=== PATIENT | male | born 1970 | race Caucasian/White ===

== ENCOUNTER 2017-12-23 21:54 | Emergency (ER) | payer OTHER, SELFPAY ==
[2017-12-23 22:03] VITALS: BP 106/54; PULSE 71; RESP 16; TEMP 37; O2SAT 98; BMI 21.5
--- NOTE | 2017-12-23 22:18 | HMH.EDGENADL ---
ED Disposition Clinical Impression: Acute bronchitis Qualifiers: Bronchitis organism: unspecified organism Qualified Code(s): J20.9 - Acute bronchitis, unspecified COPD (chronic obstructive pulmonary disease) Qualifiers: COPD type: unspecified COPD Qualified Code(s): J44.9 - Chronic obstructive pulmonary disease, unspecified Disposition: Home, Self-Care Condition on Discharge: Good Additional Instructions: Additional instructions for ACUTE BRONCHITIS: Use Tylenol or Ibuprofen for pain or fever. Rest and plenty of fluids. Return immediately if you have an uncontrollable fever greater than 102 degrees, severe headache or neck stiffness, difficulty breathing or shortness of breath, persistent vomiting, severe sore throat or inability to swallow. See your physician if not improving in 4-5 days. Prescriptions: Azithromycin [Zithromax 250mg tab] 250 mg PO DAILY #4 tab predniSONE [Prednisone 20mg Tab] 20 mg PO BID #10 tab - Critical Care Critical Care Time: No Attestation: On , the high probability of a clinically significant, sudden or life threatening deterioration of the following system(s) required my full and direct attention, intervention and personal management. The time I documented below is in addition to time spent performing reported procedures but includes the following listed in this critical care notation. Medical Decision Making - Elier Inquiry Pt receiving controlled substance: No Vital Signs: 12/23/17 22:03 Temperature 98.6 F Temperature Source Oral Pulse Rate [Right Brachial] 71 Respiratory Rate 16 Blood Pressure [Right Arm] 106/54 Blood Pressure Mean [Right Arm] 71 02 Sat by Pulse Oximetry 98 Oxygen Delivery Method Room Air Orders (Tests/Meds): ED MEDICATIONS Generic Name Dose Route Start Last Admin Trade Name Freq PRN Reason Stop Dose Admin Albuterol Sulfate 2 puffs 12/23/17 22:39 Proventil-Hfa 90mcg/Puff Inhaler 01/22/18 22:38 Q4HP PRN Shortness Of Breath Discontinued Medications Generic Name Dose Route Start Last Admin Trade Name Freq PRN Reason Stop Dose Admin Albuterol Sulfate 2.5 mg 12/23/17 22:26 12/23/17 22:52 Albuterol 0.083% 2.5mg/3ml Neb 12/23/17 22:27 2.5 mg ONCE ONE Administration Azithromycin 500 mg 12/23/17 22:40 Zithromax 250mg Tablet PO 12/23/17 22:41 ONCE ONE Protocol Miscellaneous 1 unit 12/23/17 22:39 Aerochamber/Optihaler MC 12/23/17 22:40 ONCE ONE Prednisone 40 mg 12/23/17 22:40 Deltasone 20mg Tablet PO 12/23/17 22:41 ONCE ONE ORDERS Category Date Time Status Chest XR 2 view (NOT portable) [XR chest 2V] Stat Exams 12/23/17 22:26 Taken - Radiology Data #1 Image(s): Chest Image Reviewed: Yes I reviewed the patient's radiology image Preliminary Findings: Normal/NAD General Adult HPI - General Chief complaint: Shortness of Breath/Dyspnea Stated complaint: COPD,Cough Time Seen by Provider: 12/23/17 22:22 Mode of Arrival: Family Vehicle Limitations: No Limitations Description of Symptoms (Recalled from ER Triage Doc. by RN): Cough, soa, pt states he had COPD and has been very soa today. - History of Present Illness HPI narrative: Patient says he has had a cold for couple of weeks. Today he had more shortness of air has been wheezing. Has colored rhinorrhea and colored sputum. Low-grade fever. No chest pain. Diagnosed with COPD, currently not on any medications. He is a smoker. Other family members also have a cold. States his breathing feels better since arriving in the ED. vomited his supper tonight. - Related Data Previous Rx's Medication Instructions Recorded Azithromycin [Zithromax 250mg 250 mg PO DAILY #4 tab 12/23/17 tab] predniSONE [Prednisone 20mg 20 mg PO BID #10 tab 12/23/17 Tab] Allergies Allergy/AdvReac Type Severity Reaction Status Date / Time No Known Allergies Allergy Verified
--- NOTE | 2017-12-23 22:26 | XR_ITS ---
XR chest 2V INDICATION: Cough and congestion COMPARISON: None available FINDINGS: The cardiovascular structures are unremarkable. No mediastinal shift or hilar mass is evident. The lungs are well expanded and clear bilaterally. The costophrenic sulci are sharp. No significant bony anomalies are apparent. IMPRESSION: Negative chest.
[2017-12-23 22:52] VITALS: PULSE 87
[2017-12-23 22:53] VITALS: PULSE 88
[2017-12-23 23:03] VITALS: BP 106/54; PULSE 77; RESP 18; TEMP 37.1; O2SAT 97
== END 2017-12-23 23:06 | disposition home or self-care (01) ==
PROVIDERS: Emergency Provider Emergency Medicine
DX: J44.0 Chronic obstructive pulmonary disease with (acute) lower respiratory infection (principal)
CPT/HCPCS: 71046; 99282

== ENCOUNTER → 2022-07-12 15:35 | Outpatient (CLI) | payer MEDICAID, SELFPAY ==
[2022-07-12 18:50] LABS: Alanine Aminotransferase 25 U/L (12-78); Albumin Level 4.5 g/dl (3.5-5.0); Albumin/Globulin Ratio 1.2 (1.1-1.8); Alkaline Phosphatase 109 U/L (38-126); Anion Gap 18.7 mEq/L (5-15); Aspartate Amino Transferase 31 U/L (17-59); Bilirubin,Total 1.3 mg/dl (0.2-1.3); Blood Urea Nitrogen 7 mg/dl (9-20); Calcium 9.3 mg/dl (8.4-10.2); Carbon Dioxide 28 mmol/L (22.0-30.0); Chloride 101 mmol/L (98-107); Estimated Glomerular Filt Rate 78 ml/min (>60); GFR (African American) 95 ML/MIN (>60); Globulin 3.8 g/dL (1.3-3.2); Glucose 88 mg/dl (74-100); Potassium 4.7 mmoL/L (3.5-5.1); Sodium 143 mmol/L (136-145); Total Protein,Serum 8.3 g/dl (6.3-8.2)
[2022-07-12 19:20] LABS: Thyroid Stimulating Hormone 1.32 uIU/mL (0.465-4.68)
[2022-07-12 19:39] LABS: Vitamin B12 256 pg/mL (239-931)
== END ==
PROVIDERS: PCP Family Medicine; Visit Provider Family Medicine
DX: R74.8 Abnormal levels of other serum enzymes (principal); I49.8 Other specified cardiac arrhythmias
CPT/HCPCS: 80053; 82607; 84443

== ENCOUNTER → 2022-07-25 14:07 | Outpatient (CLI) | payer MEDICAID, SELFPAY | PROVIDERS: PCP Family Medicine; Visit Provider Nurse Practitioner | DX: I49.8 Other specified cardiac arrhythmias (principal) | CPT/HCPCS: 93306 ==

== ENCOUNTER → 2022-10-21 11:00 | Outpatient (CLI) | payer MEDICAID, SELFPAY ==
[2022-10-21 18:20] LABS: MANUAL DIFFERENTIAL MANUAL DIFFERENTIAL (MANUAL DIFF)
[2022-10-21 18:32] LABS: Basophils # 0.1 K/mm3 (0-0.2); Basophils % 0.8 % (0.1-2.0); Eosinophils # 0.2 K/mm3 (0.0-0.4); Hematocrit 53.2 % (42.0-52.0); Hemoglobin 17.6 g/dL (14.1-18.0); Lymphocytes # 2.5 K/mm3 (0.7-4.5); Lymphocytes % 28.2 % (10-50); Mean Corpuscular Hemoglobin 34.3 pg (27.0-31.2); Mean Corpuscular Volume 103.8 fl (80-94); Mean Platelet Volume 8.8 fl (7.4-10.4); Monocytes # 0.4 K/mm3 (0.1-1.0); Monocytes % 4.6 % (1.7-9.3); Neutrophils # 5.7 K/mm3 (1.8-7.8); Neutrophils % 64.5 % (37.0-80.0); Platelet Count 212 K/mm3 (142-424); Red Blood Count 5.13 M/mm3 (4.60-6.20); Red Cell Distribution Width 13.5 % (11.5-17.5); White Blood Count 8.8 K/mm3 (4.8-10.8)
[2022-10-21 18:35] LABS: Alanine Aminotransferase 21 U/L (12-78); Albumin Level 4.3 g/dl (3.5-5.0); Albumin/Globulin Ratio 1.3 (1.1-1.8); Alkaline Phosphatase 98 U/L (38-126); Anion Gap 11.9 mEq/L (5-15); Aspartate Amino Transferase 28 U/L (17-59); Bilirubin,Total 0.9 mg/dl (0.2-1.3); Blood Urea Nitrogen 8 mg/dl (9-20); Carbon Dioxide 30 mmol/L (22.0-30.0); Chloride 104 mmol/L (98-107); Estimated Glomerular Filt Rate 70 ml/min (>60); GFR (African American) 85 ML/MIN (>60); Globulin 3.4 g/dL (1.3-3.2); Glucose 98 mg/dl (74-100); Potassium 4.9 mmoL/L (3.5-5.1); Sodium 141 mmol/L (136-145); Total Protein,Serum 7.7 g/dl (6.3-8.2)
[2022-10-21 19:37] LABS: Eosinophils % 2 % (0-3); Lymphocytes % 33 % (10-50); Macrocytosis 1+; Monocytes % 1 % (2-9); Neutrophils % 64 % (42-76); Platelet Estimate Normal; Total Cells Counted 100
== END ==
PROVIDERS: PCP Family Medicine; Visit Provider Family Medicine
DX: K74.60 Unspecified cirrhosis of liver (principal); E53.8 Deficiency of other specified B group vitamins
CPT/HCPCS: 80053; 85007; 85014; 85018; 85048; 85049

== ENCOUNTER 2023-02-04 20:48 | Emergency (ER) | payer MEDICAID, SELFPAY ==
[2023-02-04 20:48] VITALS: BP 130/82; PULSE 74; RESP 20; TEMP 36.8; O2SAT 98; BMI 29.5
--- NOTE | 2023-02-04 20:49 | XR_ITS ---
PROCEDURE INFORMATION: Exam: XR Chest Exam date and time: 02/04/2023 9:07 PM Age: 52 years old Clinical indication: Pain; Chest pressure; Additional info: Cp TECHNIQUE: Imaging protocol: Radiologic exam of the chest. Views: 1 view. COMPARISON: CR CXR2V XR chest 2V 12/23/2017 10:25 PM FINDINGS: Lungs: Unremarkable. No consolidation. Pleural spaces: Unremarkable. No pleural effusion. No pneumothorax. Heart/Mediastinum: Unremarkable. No cardiomegaly. Bones/joints: Unremarkable. IMPRESSION: No acute findings.
[2023-02-04 20:51] VITALS: BP 130/82; PULSE 72; RESP 14; O2SAT 96
--- NOTE | 2023-02-04 20:53 | PC.NURSE ---
RAD at for CXR
--- NOTE | 2023-02-04 21:00 | ECG_ITS ---
APPROVED REPORT Exam: Resting ECG HR:69 bpm ECG Measurements Heart Rate 69 AXES GA 143 P 62 QRSd 85 QRS 67 QT 365 T 59 QTc 383 Conclusion SINUS RHYTHM WITH OCCASIONAL VENTRICULAR PREMATURE COMPLEXES BORDERLINE ECG UNCONFIRMED REPORT Electronically signed by : Ervin Kendrick MD 02/05/2023 13:33:35
[2023-02-04 21:01] VITALS: BP 110/78; PULSE 70; RESP 16; O2SAT 97
[2023-02-04 21:07] LABS: Basophils # 0.1 K/mm3 (0-0.2); Basophils % 0.8 % (0.1-2.0); Eosinophils # 0.2 K/mm3 (0.0-0.4); Eosinophils % 2.7 % (0.1-12.0); Hematocrit 51.5 % (42.0-52.0); Hemoglobin 16.8 g/dL (14.1-18.0); Lymphocytes # 2.7 K/mm3 (0.7-4.5); Lymphocytes % 36.3 % (10-50); Mean Corpuscular HGB Conc 32.7 g/dL (31.8-35.4); Mean Corpuscular Hemoglobin 34.4 pg (27.0-31.2); Mean Corpuscular Volume 105.1 fl (80-94); Mean Platelet Volume 7.8 fl (7.4-10.4); Monocytes # 0.5 K/mm3 (0.1-1.0); Monocytes % 6.6 % (1.7-9.3); Neutrophils % 53.5 % (37.0-80.0); Platelet Count 131 K/mm3 (142-424); Red Cell Distribution Width 13.5 % (11.5-17.5); White Blood Count 7.4 K/mm3 (4.8-10.8)
[2023-02-04 21:10] LABS: Chloride 105 mmol/L (98-107); Sodium 142 mmol/L (136-145)
[2023-02-04 21:11] LABS: Potassium 3.9 mmoL/L (3.5-5.1)
[2023-02-04 21:13] LABS: Alanine Aminotransferase 29 U/L (12-78); Albumin Level 4.3 g/dl (3.5-5.0); Albumin/Globulin Ratio 1.2 (1.1-1.8); Alkaline Phosphatase 104 U/L (38-126); Anion Gap 9.9 mEq/L (5-15); Aspartate Amino Transferase 35 U/L (17-59); Bilirubin,Total 0.6 mg/dl (0.2-1.3); Blood Urea Nitrogen 9 mg/dl (9-20); Carbon Dioxide 31 mmol/L (22.0-30.0); Creatinine Clearance Estimated 105 mL/min (50-200); Estimated Glomerular Filt Rate 78 ml/min (>60); GFR (African American) 94 ML/MIN (>60); Globulin 3.6 g/dL (1.3-3.2); Total Protein,Serum 7.9 g/dl (6.3-8.2)
[2023-02-04 21:14] LABS: Calcium 9.1 mg/dl (8.4-10.2); Glucose 84 mg/dl (74-100); INR 0.95 (0.9-1.1); Prothrombin Time 10.3 seconds (10.1-12.5)
[2023-02-04 21:23] LABS: NT Pro Brain Natriuretic Pep. 103 pg/mL (0-125)
[2023-02-04 21:27] LABS: Troponin I < 0.01 ng/ml (0.00-0.034)
--- NOTE | 2023-02-04 21:28 | PC.NURSE ---
Dr. Conti at [facility]
[2023-02-04 21:31] VITALS: BP 121/69; PULSE 70; RESP 14; O2SAT 98
[2023-02-04 21:41] LABS: Microscopic, Urine URINE MICROSCOPIC (MICROSCOPIC)
[2023-02-04 21:44] LABS: Appearance,Urine CLEAR (Clear); Bilirubin,Urine Negative (Negative); Blood, Urine Negative (Negative); Color,Urine YELLOW (Yellow); Glucose,Urine (UA) Negative (Negative); Ketones,Urine Negative (Negative); Leukocyte Esterase,Urine Negative (Negative); Nitrate,Urine Negative (Negative); Protein,Urine Negative (Negative)
--- NOTE | 2023-02-04 21:52 | HMH.EDGENADL ---
Discharge Plan Disposition Patient Disposition: Home, Self-Care Condition: Good Chief Complaint: Chest Pain Prescriptions Prescriptions: No Action ipratropium-albuterol 0.5 mg-3 mg(2.5 mg base)/3 mL solution for nebulization 3 ml inhalation Q6HP PRN (Reason: short of air) furosemide 20 mg tablet 20 mg PO DAILY Label Comments: TAKE 1 TABLET BY MOUTH EVERY DAY omeprazole 20 mg capsule,delayed release(DR/EC) 20 mg PO BID Label Comments: TAKE 1 CAPSULE BY MOUTH 2 TIMES DAILY (BEFORE MEALS) FOR 30 DAYS. Xifaxan 550 mg tablet 550 mg PO BID Label Comments: TAKE 1 TABLET BY MOUTH TWICE A DAY hyoscyamine sulfate 0.125 mg tablet 0.125 mg PO Q6H Label Comments: TAKE 1 TABLET BY MOUTH EVERY 6 HOURS FOR 30 DAYS. alfuzosin 10 mg tablet extended release 24 hr 10 mg PO DAILY Label Comments: TAKE 1 TABLET BY MOUTH EVERY DAY loratadine 10 mg tablet 10 mg PO DAILY nadolol 20 mg tablet 20 mg PO DAILY Label Comments: TAKE 1 TABLET BY MOUTH EVERY DAY fluticasone propionate [Allergy Relief (fluticasone)] 50 mcg/actuation spray,suspension 1 spray intranasal DAILY Qty: 16 2RF Rx Instructions: administer into each nostril bupropion HCl 150 mg tablet extended release 24 hr 150 mg PO DAILY Anoro Ellipta 62.5-25 mcg/actuation blister with device 1 inh inhalation DAILY ondansetron 4 MG tablet,disintegrating 4 mg PO TIDP PRN (Reason: Nausea And Vomiting) Qty: 10 0RF Referrals Follow up/Referrals: Tomer Soto MD [Primary Care Provider] - See instructions Clinical Impressions Clinical Impression: Acute chest wall pain Instructions Patient Instructions: DI for Atypical Chest Pain Discharge ED Provider: Husam Conti General Adult [facility] General Chief complaint: Chest Pain Stated complaint: Chest Pain Time Seen by Provider: 02/04/23 20:48 Mode of Arrival: Family Vehicle Source of Information: Patient Limitations: No Limitations Description of Symptoms (Recalled from ER Triage Doc. by RN): Pt c/o midsternal chest pain that began at 1500 today. He reports he had an echo at [facility] a few months ago and it showed I only had 40% of my heart works . He reports when his pain initaially began it began in his shoulder then moved to his mid back and into midsternal chest. He also c/o SOA. He has a hx of stage 4 liver cirrhosis. Reports he used to have acites. History of Present Illness HPI narrative: 52yo M presents to the ER with multiple complaints. Complains of left shoulder and back pain. His symptoms are exacerbated with use of his left upper extremity. Complains of substernal chest pain. Complains of shortness of breath. Denies fever. Symptoms began around 3 PM today. Related Data Home Medications Medication Instructions Recorded Confirmed alfuzosin 10 mg tablet,extended 10 mg PO DAILY . 07/12/22 02/04/23 release 24 hr furosemide 20 mg tablet 20 mg PO DAILY fluid overload 07/12/22 02/04/23 hyoscyamine sulfate 0.125 mg tablet 0.125 mg PO Q6H stomach 07/12/22 02/04/23 ipratropium 0.5 mg-albuterol 3 mg 3 ml inhalation Q6HP PRN short of 07/12/22 02/04/23 (2.5 mg base)/3 mL nebulization air soln omeprazole 20 mg capsule,delayed 20 mg PO BID gerd 07/12/22 02/04/23 release rifaximin 550 mg tablet (Xifaxan) 550 mg PO BID stomach 07/12/22 02/04/23 loratadine 10 mg tablet 10 mg PO DAILY Allergy symptoms 08/12/22 02/04/23 nadolol 20 mg tablet 20 mg PO DAILY High blood pressure 08/12/22 02/04/23 bupropion HCl 150 mg 24 hr tablet, 150 mg PO DAILY Depression 02/04/23 02/04/23 extended release umeclidinium 62.5 mcg-vilanterol 1 inh inhalation DAILY COPD 02/04/23 02/04/23 25 mcg/actuation powdr for inhalation (Anoro Ellipta) Previous Rx's Medication Instructions Recorded ondansetron 4 mg disintegrating 4 mg PO TIDP PRN Nausea And 02/28/18 tablet Vomiting ##10 fluticasone propionate 50 1 spray intranasal DA
[2023-02-04 21:57] LABS: Amphetamine/Metha Screen,Urine Negative ng/ml (<1000); Benzodiazepines Screen,Urine Negative ng/ml (<200)
[2023-02-04 21:58] LABS: Barbiturates Screen,Urine Negative ng/ml (<200)
[2023-02-04 21:59] LABS: Cannabinoid Screen,Urine Negative ng/ml (<50); Methadone Screen,Urine Negative ng/ml (<300)
[2023-02-04 22:00] LABS: Cocaine Screen,Urine Negative ng/ml (<300); Opiate Screen,Urine Negative ng/ml (<300)
[2023-02-04 22:01] LABS: Phencyclidine Screen,Urine Negative ng/ml (<25)
[2023-02-04 22:06] VITALS: BP 107/79; PULSE 71; PULSE 74; RESP 16; TEMP 36.8; O2SAT 98
[2023-02-04 22:14] LABS: Bacteria,Urine Trace /lpf; RBC,Urine Occasional #/hpf (0-3); Squamous Epithelial Cell,Urine Occasional #/hpf (0-5)
== END 2023-02-04 22:07 | disposition home or self-care (01) ==
PROVIDERS: Emergency Provider Family Medicine; PCP Family Medicine
DX: R07.89 Other chest pain (principal); M25.512 Pain in left shoulder; F17.210 Nicotine dependence, cigarettes, uncomplicated
CPT/HCPCS: 71045; 80053; 80305; 81001; 83880; 84484; 85025; 85610; 93005; 99285

== ENCOUNTER → 2023-04-19 15:43 | Outpatient (CLI) | payer MEDICAID, SELFPAY ==
--- NOTE | 2023-04-19 15:50 | XR_ITS ---
FINAL REPORT CLINICAL HISTORY: Swelling. Shortness of breath. Hx of arrhythmia, cirrhosis, emphysema & COPD. COMPARISON: 02/04/2023 FINDINGS: Two views of the chest were obtained. The heart size and pulmonary vascularity are within normal limits. The mediastinum is normal. There is mild linear atelectasis in the lung bases. There is no pneumothorax. The bony thorax is intact. IMPRESSION: Mild linear atelectasis in the lung bases. Reviewed, Interpreted and Dictated by Mian Ramos III, MD Transcribed by Lore Garzon Authenticated and [facility]
--- NOTE | 2023-04-19 16:14 | ECG_ITS ---
APPROVED REPORT Exam: Resting ECG HR:74 bpm ECG Measurements Heart Rate 74 AXES MT 147 P 53 QRSd 85 QRS 42 QT 358 T 60 QTc 385 Conclusion SINUS RHYTHM WITH SINUS ARRHYTHMIA NORMAL ECG UNCONFIRMED REPORT Electronically signed by : Ervin Kendrick MD 04/20/2023 21:35:50
[2023-04-19 16:24] LABS: Basophils % 0.3 % (0.1-2.0); Eosinophils # 0.2 K/mm3 (0.0-0.4); Eosinophils % 2.9 % (0.1-12.0); Hematocrit 50.7 % (42.0-52.0); Hemoglobin 16.7 g/dL (14.1-18.0); Lymphocytes # 2.6 K/mm3 (0.7-4.5); Mean Corpuscular Hemoglobin 33.5 pg (27.0-31.2); Mean Corpuscular Volume 101.5 fl (80-94); Mean Platelet Volume 7.6 fl (7.4-10.4); Monocytes # 0.5 K/mm3 (0.1-1.0); Monocytes % 6.1 % (1.7-9.3); Neutrophils # 4.8 K/mm3 (1.8-7.8); Neutrophils % 58.6 % (37.0-80.0); Platelet Count 176 K/mm3 (142-424); Red Blood Count 4.99 M/mm3 (4.60-6.20); Red Cell Distribution Width 13.4 % (11.5-17.5); White Blood Count 8.2 K/mm3 (4.8-10.8)
[2023-04-19 17:27] LABS: Alanine Aminotransferase 27 U/L (12-78); Albumin Level 4.5 g/dl (3.5-5.0); Albumin/Globulin Ratio 1.4 (1.1-1.8); Alkaline Phosphatase 92 U/L (38-126); Anion Gap 10.2 mEq/L (5-15); Aspartate Amino Transferase 31 U/L (17-59); Bilirubin,Total 0.9 mg/dl (0.2-1.3); Blood Urea Nitrogen 7 mg/dl (9-20); Carbon Dioxide 30 mmol/L (22.0-30.0); Chloride 105 mmol/L (98-107); Estimated Glomerular Filt Rate 78 ml/min (>60); GFR (African American) 94 ML/MIN (>60); Globulin 3.2 g/dL (1.3-3.2); Glucose 96 mg/dl (74-100); Potassium 4.2 mmoL/L (3.5-5.1); Sodium 141 mmol/L (136-145); Total Protein,Serum 7.7 g/dl (6.3-8.2)
[2023-04-19 17:35] LABS: NT Pro Brain Natriuretic Pep. 31.6 pg/mL (0-125)
== END ==
PROVIDERS: PCP Nurse Practitioner; Visit Provider Nurse Practitioner
DX: I25.5 Ischemic cardiomyopathy (principal); K74.60 Unspecified cirrhosis of liver; R60.0 Localized edema
CPT/HCPCS: 36415; 71046; 80053; 83880; 85025; 93005